=== PATIENT | male | born 2000 | race Two or more races ===

== ENCOUNTER 2022-02-07 06:53 | Emergency (ER) | payer OTHER ==
[~2022-02-07] VITALS: Ht 182.9 cm; Wt 88.5 kg
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
--- NOTE | 2022-02-07 07:25 | NUR ---
shaun': misael [phone]
--- NOTE | 2022-02-07 07:55 | NUR ---
PT IS AWAKE AND ALERT, AAOX4, SPEAKS CLEARLY AND IN FULL SENTENCES, VS STABLE
--- NOTE | 2022-02-07 09:12 | NUR ---
NEEDS MET. AAOX4, BREATHING EVEN AND UNLABORED. VS STABLE
[2022-02-07] MEDS ORDERED: NALO4SPR BNOSTRILS (10:29)
--- NOTE | 2022-02-07 10:59 | NUR ---
Patient discharged to home in stable condition. Written and verbal after care instructions given. Patient verbalizes understanding of instruction.
[2022-02-07 11:00] VITALS: BP 116/79
== END 2022-02-07 11:01 | disposition home or self-care (01) ==
LOC: ER 06:56
DX: T40.411A Poisoning by fentanyl or fentanyl analogs, accidental (unintentional), initial encounter (principal); Y92.89 Other specified places as the place of occurrence of the external cause